=== PATIENT | male | born 1940 | race African-American/Black ===

== ENCOUNTER 2017-02-08 07:26 | Day surgery (SDC) | payer MEDICARE, OTHER ==
--- NOTE | 2017-02-07 11:02 | Pre-Procedure Note/Attestation ---
Pre-Procedure Note/Attestation Complete Prior to Procedure Planned Procedure: right Procedure Narrative: phaco with IOL, OD Indications for Procedure Pre-Operative Diagnosis: cataract Attestation I attest that I discussed the nature of the procedure; its benefits; risks and complications; and alternatives (and the risks and benefits of such alternatives ), prior to the procedure, with the patient (or the patient's legal home furnishings sales representative). I attest that, if there was a reasonable possibility of needing a blood transfusion, the patient (or the patient's legal home furnishings sales representative) was given the [facility] standardized written summary, pursuant to the Liam Petar Blood Safety Act ([place] Health and Safety Code # 1645, as amended). I attest that I re-evaluated the patient just prior to the surgery and that there has been no change in the patient's H&P, except as documented below: ЕКАТЕРИНА VAZQUEZ Feb 07, 2017 11:02
--- NOTE | 2017-02-07 11:04 | Opthalmology H&P ---
Ophthalmology H&P H&P Chief Complaint: decreased vision in right eye HPI Vision Affects Ability to: read, focus/use eyes together HPI Narrative blurry vision Exam Visual Acuity: OD: cf OS: cf Tension: OD: 20 OS: 23 Eye Exam: normal OU: anterior chambers, corneas, external exam, levator function, marginal reflex distance, palpebral fissure-width, findings: fundus exam - poor view OU, lens - OD: ns Assessment/Plan Diagnosis: (1) Cataract Treatment Plan: cataract extraction w/ lens implant Goals of Treatment: improvement of vision, enhance quality of life Attestation Attestation The risks and benefits of the surgery as well as alternative procedures were explained to the patient in detail. ЕКАТЕРИНА VAZQUEZ Feb 07, 2017 11:03
[~2017-02-08] VITALS: Ht 152.4 cm; Wt 49.0 kg
[2017-02-08] VITALS (10 sets, daily range): BP systolic 111–124; BP diastolic 37–82
[~2017-02-08 07:26] MED LIST: ATIVAN1 MG ORAL; AVODART0.5 MG ORAL; Akten 3.5% 1ml Btl RIGHT EYE ONE; FLOMAX0.4 MG ORAL; FOLIC ACID1 M1; FOLIC ACID1 MG ORAL; LATANOPROST2.5 ML BOTH EYES; METHOTREXATE2.5 MG PO; PLAQUENIL200 MG ORAL; PREDNISONE10 M2 PO; PREDNISONE20 M1 PO; PROCRIT3000 UNIT/ SUBQ; PROSCAR5 MG ORAL; TAMSULOSIN HCL0.4 MG ORAL; TRAMADOL HCL50 MG ORAL; Tobramycin Op Soln 0.3% RIGHT EYE ONE
[2017-02-08] MEDS: Cyclopentolate 1% Opth Sol RIGHT EYE SCH ×3 (07:55→08:14)
[2017-02-08] MEDS: Tropicamide 1% Opth Soln RIGHT EYE SCH ×3 (07:56→08:14)
[2017-02-08] MEDS: Phenylephrine 10% Opth Soln 5ml RIGHT EYE SCH ×3 (07:56→08:14)
[2017-02-08] MEDS: Diclofenac Sod 0.1% Op Soln RIGHT EYE SCH ×3 (07:56→08:15)
[2017-02-08] MEDS ORDERED: MELOXICAM7.5 MG/5 M ORAL (08:14)
[2017-02-08] MEDS ORDERED: PREDNISONE20 M1 PO (08:14)
[2017-02-08] MEDS ORDERED: Sterile Water Irrig 1000ml IRRIG ONE (09:30)
[2017-02-08] MEDS ORDERED: Midazolam 2mg/2ml Inj ONE (09:30)
[2017-02-08] MEDS ORDERED: Propofol 10mg/ml 20ml IV ONE (09:30)
[2017-02-08] MEDS ORDERED: NS Irrig 1000ml ONE (09:30)
--- NOTE | 2017-02-08 09:57 | Anethesia Preoperative Eval ---
Anesthesia Pre-op PMH/ROS General Date of Evaluation: Feb 08, 2017 Time of Evaluation: 09:21 Anesthesiologist: Jonas ASA Score: ASA 3 Mallampati Score Class I : Soft palate, uvula, fauces, pillars visible Class II: Soft palate, uvula, fauces visible Class III: Soft palate, base of uvula visible Class IV: Only hard plate visible Mallampati Classification: Class III Surgeon: Dianelys Diagnosis: Cataract right eye Surgical Procedure: Extraction of cataract with IOL right eye Anesthesia History: none Family History: no anesthesia problems Allergies: Coded Allergies: SULFAMETHOXAZOLE (Unverified Allergy, Mild, Rash, 08/01/14) reported by patient TRIMETHOPRIM (Unverified Allergy, Mild, Rash, 08/01/14) reported by patient Medications: see eMAR Past Medical History Cardiovascular: Reports: CAD, other - CHF Pulmonary: Denies: COPD, PINEDA, asthma, other Gastrointestinal/Genitourinary: Reports: CRI, other - BPH, Denies: ESRD, GERD Neurologic/Psychiatric: Denies: CVA, TIA, dementia, depression/anxiety, other Endocrine: Denies: DM, hypothyroidism, other, steroids HEENT: Reports: cataract (R) Hematology/Immune: Reports: anemia, Denies: DVT, bleeding disorder, other Musculoskeletal/Integumentary: Reports: RA, Denies: DDD, DJD, OA, edema, other PMH Narrative: RA, CHF, BPH, anemia, CRI, contractures PSxH Narrative: Denies Anesthesia Pre-op Phys. Exam Physician Exam Last Vital Signs Date Time Temp Pulse Resp B/P Pulse Ox O2 Delivery O2 Flow Rate FiO2 02/08/17 08:07 98.3 95 18 111/65 98 Room Air Constitutional: NAD, other - Contractures Neurologic: CN 2-12 intact Cardiovascular: RRR, no M/R/G Respiratory: CTA Gastrointestinal: S/NT/ND Airway Exam Mallampati Score: Class III MO: limited Teeth: intact Anesthesia Pre-op A/P Risk Assessment & Plan Assessment: RA, contractures, CRI, CHF Plan: MAC, TIVA Status Change Before Surgery: No Pre-Antibiotics Drug: None JUAN MURGUIA M.D. Feb 08, 2017 09:56
--- NOTE | 2017-02-08 09:58 | Immediate Post-Op Evaluation ---
Immediate Post-Op Evalulation Immediate Post-Op Evalulation Procedure: Extraction of cataract with IOL right eye Date of Evaluation: Feb 08, 2017 Time of Evaluation: 10:45 IV Fluids: 300 Blood Pressure Systolic: 113 Blood Pressure Diastolic: 74 Pulse Rate: 94 Respiratory Rate: 20 O2 Sat by Pulse Oximetry: 100 Temperature (Fahrenheit): 97.5 Pain Score (1-10): 0 Nausea: No Vomiting: No Complications No complication Patient Status: awake, patent, none Hydration Status: adequate Drug: None JUAN MURGUIA M.D. Feb 08, 2017 09:58
[2017-02-08] MEDS ORDERED: fentaNYL 100 mcg/2 mL IV PRN (10:00)
--- NOTE | 2017-02-08 10:43 | 48 Hour Post Anesthesia Eval ---
Post Anesthesia Evaluation Procedure: Extraction of cataract with IOL right eye Date of Evaluation: Feb 08, 2017 Time of Evaluation: 11:15 Blood Pressure Systolic: 115 0: 75 Pulse Rate: 82 Respiratory Rate: 15 O2 Sat by Pulse Oximetry: 100 Airway: patent Nausea: No Pain Intensity: 0 Hydration Status: adequate Cardiopulmonary Status: Stable Mental Status/LOC: patient returned to baseline Follow-up Care/Observations: As per surgery Post-Anesthesia Complications: No anesthetic complication Follow-up care needed: N/A JUAN MURGUIA M.D. Feb 08, 2017 10:43
[2017-02-08] MEDS ORDERED: Pilocarpine 2% Opth Soln ONE (12:35)
[2017-02-08] MEDS ORDERED: Lidocaine 4% Amp ONE (12:35)
[2017-02-08] MEDS ORDERED: Povidone-Iodine 5% opth solution ONE (12:35)
[2017-02-08] MEDS ORDERED: Sodium Hyaluronate 14 mg/ml 0.85ml ONE (12:35)
[2017-02-08] MEDS ORDERED: EPINEPHrine 1mg/1ml Amp ONE (12:35)
[2017-02-08] MEDS ORDERED: Carbachol 0.01% Op Soln 1.5ml vial ONE (12:35)
[2017-02-08] MEDS ORDERED: BSS 15ml BTL ONE (12:35)
--- NOTE | 2017-02-09 09:07 | Brief Operative Note ---
Immediate Post Operative Note Operative Note Chief Complaint: blurry vision Pre-op Diagnosis: cataract Procedure: phaco with IOL, OD Post-op Diagnosis: pseudophakia Post-op Diagnosis: same as pre-op Findings: consistent w/pre-op dx studies Surgeon: Dianelys Anesthesiologist: Jonas Anesthesia: MAC Specimen: none Complications: none Estimated Blood Loss: none Drains: none Implant(s) used?: Yes ЕКАТЕРИНА VAZQUEZ Feb 09, 2017 09:07
--- NOTE | 2017-02-09 09:19 | Operative Note - PDOC ---
Operative Note Operative Note Date of Operation/Procedure: Feb 08, 2017 Chief Complaint: blurry vision Pre-op Diagnosis: cataract Procedure: phaco with IOL, OD Post-op Diagnosis: pseudophakia Post-op Diagnosis: same as pre-op Operative Findings: consistent w/pre-op dx studies Surgeon: Dianelys Anesthesiologist: Jonas Anesthesia: MAC Specimen: none Complications: none Estimated Blood Loss: none Drains: none Implant(s) used?: Yes Indications for Procedure cataract Description of Procedure This patient has been complaining visually significant cataract in the affected eye with the best corrected visual acuity under moderate glare conditions worse. The patient complains of difficulties with glare in performing activities of daily living and wants to manage personal affairs with comfort and accuracy and see well enough to move with safety at home and outdoors. ~~~ The risks, benefits and alternatives of the procedure were discussed with the patient in the office prior to scheduling surgery. All questions from the patient were answered after the surgical procedure was explained in detail. The risks of the procedure as explained to the patient include, but are not limited to, pain, infection, bleeding, loss of vision, retinal detachment, need for further surgery, loss of lens nucleus, double vision, etc. Alternative procedures were discussed which include, to do nothing or seek a second opinion. Informed consent for this procedure was obtained from the patient. The patient was referred to a primary care physician for a cardiopulmonary clearance prior to surgery, after proper evaluation was done patient was properly scheduled for outpatient surgery. The patient was brought to the operating room where the anesthesiologist established I.V. lines and cardiac monitoring leads. Mild intravenous sedation was administered.~~ The patient was then prepared with a 5% solution of povidone -iodine to the conjunctival fornix and lashes, and a 10% solution of povidone- iodine to the lids and periorbital skin. The patient was then draped in the usual sterile fashion. A lid speculum was then placed in the operative eye. A keratome blade was then used to create a biplanar incision into the anterior chamber. Viscoelastics was then instilled into the anterior chamber. A capsulorrhexis was then fashioned with an utrata forceps followed by a BSS and a cannula were then used to hydrodissect and hydro delineate the lens. Paracentesis incision was made at 3 o'clock with sharp blade. The phacoemulsification unit, after being properly adjusted~ and tested, was then used to emulsify the nucleus then residual cortical material was aspirated with the irrigation and aspiration unit. Healon was then instilled into the anterior chamber. The corneal wound was then enlarged to the size of the optic with the tiara keratome blade. The intraocular lens was then inspected for right~ power and size~ and thought to be satisfactory. Then the lens was gently placed in the capsular bag. Positioning within the capsular bag was confirmed by direct visualization. Optic centration was accomplished with a Sinskey hook. Viscoelastics~ was removed from the anterior chamber using the irrigation and aspiration unit. The corneal wound was then tested for leaks and none were found. The lid speculum were then removed. Sponge and needle counts were correct. An eye patch and shield were placed over the operative eye. The patient was taken to the recovery room in stable condition. There were no complications. The patient tolerated the procedure well. The patient was then transferred to the ambulatory surgery unit in stable and satisfactory condition , was given detailed written instructions and asked to follow up~ in the office the next day. ~ ~ Dictated & Transcribed: [facility] Melissa DONNELLY JAMES Feb 09, 2017 09:19
== END 2017-02-08 11:30 | disposition home or self-care (01) ==
LOC: SUR 07:26
DX: H26.9 Unspecified cataract (principal); N18.3 Chronic kidney disease, stage 3 (moderate); N40.0 Benign prostatic hyperplasia without lower urinary tract symptoms; D63.1 Anemia in chronic kidney disease; M06.9 Rheumatoid arthritis, unspecified; I25.10 Atherosclerotic heart disease of native coronary artery without angina pectoris; I50.9 Heart failure, unspecified; R32 Unspecified urinary incontinence; Z88.3 Allergy status to other anti-infective agents; Z88.2 Allergy status to sulfonamides; Z79.52 Long term (current) use of systemic steroids; Z79.899 Other long term (current) drug therapy
CPT/HCPCS: 66984; J0171; J2250; J2704; V2632; 94003; 94150

== ENCOUNTER 2017-03-13 18:25 | Inpatient (IN) | payer MEDICARE, OTHER ==
[2017-03-13] VITALS (7 sets, daily range): BP systolic 58–122; BP diastolic 36–85
[~2017-03-13] VITALS: Ht 152.4 cm; Wt 39.9 kg
[~2017-03-13 18:25] MED LIST changes: -Akten 3.5% 1ml Btl RIGHT EYE ONE; +MELOXICAM7.5 MG/5 M ORAL; -Tobramycin Op Soln 0.3% RIGHT EYE ONE
[2017-03-13] MEDS ORDERED: Famotidine 20 MG/ 2ML VIAL IVP ONE (19:00)
[2017-03-13] MEDS ORDERED: Levophed 4mg/4mL Inj IV ONE ×2 (19:34→22:49)
[2017-03-13 20:29] LABS: MEAN CORPUSCULAR HEMOGLOBIN 32.4 PG (27.0-31.0); MEAN CORPUSCULAR HGB CONC 31.6 G/DL (32.0-36.0); MEAN CORPUSCULAR VOLUME 103 FL (80-99); MEAN PLATELET VOLUME 4.4 FL (6.5-10.1); PLATELET COUNT 244 K/UL (150-450); RED CELL DISTRIBUTION WIDTH 13.9 % (11.6-14.8); WHITE BLOOD COUNT 8.3 K/UL (4.8-10.8)
[2017-03-13 21:00] LABS: TROPONIN I < 0.30 ng/mL (<=0.30)
[2017-03-13 21:04] LABS: ALANINE AMINOTRANSFERASE 5 U/L (3-41); ALBUMIN/GLOBULIN RATIO 0.8 (1.0-2.7); ANION GAP 22 (5-15); ASPARTATE AMINO TRANSFERASE 10 U/L (5-40); CALCIUM 7.7 mg/dL (8.6-10.2); CARBON DIOXIDE 12 mEQ/L (20-30); CHLORIDE 108 mEQ/L (98-107); CREATININE 2.2 mg/dL (0.7-1.2); HEMOLYSIS 7; LIPASE 18 U/L (< 60); POTASSIUM 3.8 mEQ/L (3.4-4.9); SODIUM 142 mEQ/L (135-145); TOTAL PROTEIN 5.5 g/dL (6.6-8.7)
[2017-03-13 21:08] LABS: REFLEX LACTIC ACID YES OR NO YES
[2017-03-13 21:18] LABS: APPEARANCE,URINE CLEAR; KETONES,URINE NEGATIVE (NEGATIVE); LEUKOCYTE ESTERASE ,URINE 3+ (NEGATIVE); NITRITE,URINE NEGATIVE (NEGATIVE); PH,URINE 8 (4.5-8.0); PROTEIN,URINE 4+ (NEGATIVE); UROBILINOGEN,URINE NORMAL MG/DL (0.0-1.0)
[2017-03-13 21:19] LABS: RBC,URINE TNTC /HPF (0 - 0); WBC,URINE 20-30 /HPF (0 - 0)
[2017-03-13 21:20] LABS: SQUAMOUS EPITHELIAL CELL,UR MODERATE /LPF (NONE/OCC)
[2017-03-13 21:27] LABS: INR 1.1 (0.9-1.1)
[2017-03-13 21:29] LABS: BAND NEUTROPHILS % (MANUAL) 3 % (0-8); BASOPHILS % (MANUAL) 1 % (0-2); EOSINOPHILS % (MANUAL) 0 % (0-3); LYMPHOCYTES % (MANUAL) 41 % (20-45); NEUTROPHILS % (MANUAL) 54 % (45-75); PLATELET ESTIMATE ADEQUATE; TOTAL CELLS COUNTED 100
[2017-03-13 21:30] LABS: ANISOCYTOSIS 1+; MACROCYTES 2+; POLYCHROMASIA 1+
[2017-03-13 21:31] LABS: PLATELET MORPHOLOGY NORMAL
[2017-03-13 21:34] LABS: BACTERIA,URINE MODERATE /HPF
--- NOTE | 2017-03-13 23:31 | Emergency Room Report ---
History of Present Illness General Chief Complaint: Abdominal Pain Source: Patient, EMS Present Illness HPI Patient is a 76-year-old male who presented after increased abdominal pain. Patient had sudden onset of symptoms. He reported feeling generalized weakness. He had prior history of rheumatoid disease. He had not been vomiting. He was noted to have some bleeding from his penis. The patient reported having some hematuria. History is limited by patient's being a poor historian. Allergies: Coded Allergies: SULFAMETHOXAZOLE (Unverified Allergy, Mild, Rash, 08/01/14) reported by patient TRIMETHOPRIM (Unverified Allergy, Mild, Rash, 08/01/14) reported by patient Patient History Past Medical History: other - peptic ulcer disease, rheumatoid disease Reviewed Nursing Documentation: PMH: Agreed, PSxH: Agreed Nursing Documentation-PMH Past Medical History: No History, Except For Hx Cardiac Problems: No - anemia Hx Cancer: No Hx Gastrointestinal Problems: Yes - ulcer Hx Neurological Problems: No Hx Neurologic Surgery: Yes - 1997 Review of Systems All Other Systems: limited - by ams and acuity Physical Exam Vital Signs Date Time Temp Pulse Resp B/P Pulse Ox O2 Delivery O2 Flow Rate FiO2 03/13/17 18:28 98.4 87 18 109/87 99 Room Air 03/13/17 19:45 100 Sp02 EP Interpretation: reviewed, normal General Appearance: normal inspection, alert, GCS 15, moderate distress, cachetic Head: atraumatic Eyes: bilateral eye PERRL, bilateral eye conjunctivae pale ENT: normal ENT inspection, hearing grossly normal, normal voice Neck: normal inspection, supple, no bony tend Respiratory: normal inspection, no respiratory distress, no retraction, no wheezing Cardiovascular #1: regular rate, rhythm, no edema Gastrointestinal: non tender, soft, no guarding, no hernia, tenderness - suprapubic tenderness, mass - lower abdomen Genitourinary: no CVA tenderness Musculoskeletal: normal inspection, back normal, normal range of motion Neurologic: normal inspection, alert, oriented x3, responsive, speech normal Psychiatric: normal inspection, judgement/insight normal, mood/affect normal Skin: no rash, pallor Procedures Critical Care Time Critical Care Time Patient had a critical medical condition which untreated could potentially result in life or limb threatening injury. Total critical care time excluding procedures approximately 45 minutes. Medical Decision Making Diagnostic Impression: Primary Impression: Respiratory failure Additional Impressions: Severe anemia Gross hematuria Hypovolemic shock Lactic acidosis ER Course Patient presented for abdominal pain. Differential diagnoses included ischemic bowel, appendicitis, perforated viscus, abdominal aortic aneurysm, inferior myocardial infarction, viral gastroenteritis.Because of complexity of patient's case laboratory testing and imaging studies were ordered. The patient noted have a markedly the pallor with difficulty breathing. Patient was noted to have a blood near his urethral meatus. The patient was noted to be initially verbally responsive however he rapidly deteriorated. The patient was started on IV fluids. He was given IV crossmatch blood emergently do to a suspected anemia due to the marked hypotension. The patient was intubated emergently with a 7-0 ET tube. A right internal jugular central line was attempted under ultrasound guidance. This was unsuccessful and a right femoral central venous catheter was placed for pressor management emergently. The patient was transfused and uncrossmatch blood. The patient was discussed with Dr. Benjie Arellano for inpatient management. Labs Test 03/13/17 20:20 03/13/17 21:00 03/13/17 23:00 White Blood Count 8.3 K/UL (4.8-10.8) Red Blood Count 1.60 M/UL (4.70-6.10) Hemoglobin 5.2 G/DL (14.2-18.0) Hematocrit 16.4 % (42.0-52.0) Mean Corpuscular Volume 103 FL (80-99) Mean Corpuscular Hemoglobin 32.4 PG (27.0-31.0) Mean Corpuscular Hemoglobin Concent 31.6 G/DL (32.0-36.0) Red Cell Distribution Width 13.9 % (11.6-14.8) Platelet Count 244 K/UL (150-450) Mean Platelet Volume 4.4 FL (6.5-10.1) Neutrophils (%) (Auto) % (45.0-75.0) Lymphocytes (%) (Auto) % (20.0-45.0) Monocytes (%) (Auto) % (1.0-10.0) Eosinophils (%) (Auto) % (0.0-3.0) Basophils (%) (Auto) % (0.0-2.0) Differential Total Cells Counted 100 Neutrophils % (Manual) 54 % (45-75) Lymphocytes % (Manual) 41 % (20-45) Monocytes % (Manual) 1 % (1-10) Eosinophils % (Manual) 0 % (0-3) Basophils % (Manual) 1 % (0-2) Band Neutrophils 3 % (0-8) Platelet Estimate Adequate Platelet Morphology Normal Polychromasia 1+ Anisocytosis 1+ Macrocytosis 2+ Sodium Level 142 mEQ/L (135-145) Potassium Level 3.8 mEQ/L (3.4-4.9) Chloride Level 108 mEQ/L (98-107) Carbon Dioxide Level 12 mEQ/L (20-30) Anion Gap 22 (5-15) Blood Urea Nitrogen 38 mg/dL (7-23) Creatinine 2.2 mg/dL (0.7-1.2) Estimat Glomerular Filtration Rate mL/min (>60) Glucose Level 93 mg/dL (74-106) Calcium Level 7.7 mg/dL (8.6-10.2) Total Bilirubin 0.4 mg/dL (0.0-1.2) Aspartate Amino Transf (AST/SGOT) 10 U/L (5-40) Alanine Aminotransferase (ALT/SGPT) 5 U/L (3-41) Alkaline Phosphatase 58 U/L (40-129) Troponin I < 0.30 ng/mL (<=0.30) Total Protein 5.5 g/dL (6.6-8.7) Albumin 2.5 g/dL (3.5-5.2) Globulin 3.0 g/dL Albumin/Globulin Ratio 0.8 (1.0-2.7) Lipase 18 U/L (< 60) Prothrombin Time 12.0 SEC (9.30-11.50) Prothromb Time International Ratio 1.1 (0.9-1.1) Activated Partial Thromboplast Time 18 SEC (23-33) Urine Color Red Urine Appearance Clear Urine pH 8 (4.5-8.0) Urine Specific [place] 1.010 (1.005-1.035) Urine Protein 4+ (NEGATIVE) Urine Glucose (UA) Negative (NEGATIVE) Urine Ketones Negative (NEGATIVE) Urine Occult Blood 4+ (NEGATIVE) Urine Nitrite Negative (NEGATIVE) Urine Bilirubin Negative (NEGATIVE) Urine Urobilinogen Normal MG/DL (0.0-1.0) Urine Leukocyte Esterase 3+ (NEGATIVE) Urine RBC Tntc /HPF (0 - 0) Urine WBC 20-30 /HPF (0 - 0) Urine Squamous Epithelial Cells Moderate /LPF (NONE/OCC) Urine Bacteria Moderate /HPF (NONE) EKG Diagnostic Results Rate: normal Rhythm: NSR ST Segments: other - peaked t waves ASA given to the pt in ED: No Rhythm Strip Diag. Results EP Interpretation: yes Rhythm: NSR, no PVC's, no ectopy, other Chest X-Ray Diagnostic Results Chest X-Ray Diagnostic Results : Chest X-Ray Ordered: Yes # of Views/Limited/Complete: 1 View Indication: Chest Pain EP Interpretation: Yes Interpretation: no consolidation, no acute cardiopulmonary disease Impression: No acute disease Interpreting ER Provider: Electronically signed by Dr. Alex Mckeon M.D. Last Vital Signs Date Time Temp Pulse Resp B/P Pulse Ox O2 Delivery O2 Flow Rate FiO2 03/13/17 22:00 111 16 118/80 100 Mechanical Ventilator 100 03/13/17 21:30 90.2 Status: unchanged Disposition: ADMITTED INPATIENT Condition: Critical Referrals: LOGAN POWERS (PCP) Alex Mckeon Mar 13, 2017 23:31
[2017-03-14] VITALS (35 sets, daily range): BP systolic 0–155; BP diastolic 0–124
[2017-03-14] MEDS ORDERED: Hydrocortisone 100mg Inj IV ONE
[2017-03-14 01:19] LABS: ABG PCO2 41.1 mmHg (35.0-45.0)
[2017-03-14 01:20] LABS: ABG ALLEN TEST POSITIVE
[2017-03-14] MEDS ORDERED: Levophed 4mg/4mL Inj IV ONE ×3 (01:56→07:41)
[2017-03-14] MEDS ORDERED: Zosyn 3.375gm inj ONE (02:04)
[2017-03-14] MEDS: Piperacillin/Tazobactam 3.375 GM in D5W 110 ML IVPB SCH ×2 (02:15→13:58)
[2017-03-14] MEDS ORDERED: Sodium Bicarbonate 50ml Carp ONE (02:26)
[2017-03-14] MEDS ORDERED: Sodium Bicarbonate 100 ML in D5 1/2NS 1,000 ML IV SCH (03:00)
[2017-03-14 05:00] LABS: MEAN CORPUSCULAR HEMOGLOBIN 31.8 PG (27.0-31.0); MEAN CORPUSCULAR VOLUME 96 FL (80-99); PLATELET COUNT 158 K/UL (150-450); RED BLOOD COUNT 3.16 M/UL (4.70-6.10); RED CELL DISTRIBUTION WIDTH 14.3 % (11.6-14.8); WHITE BLOOD COUNT 12.3 K/UL (4.8-10.8)
[2017-03-14 05:36] LABS: ALANINE AMINOTRANSFERASE 5 U/L (3-41); ALBUMIN/GLOBULIN RATIO 0.7 (1.0-2.7); ANION GAP 19 (5-15); ASPARTATE AMINO TRANSFERASE 13 U/L (5-40); CARBON DIOXIDE 15 mEQ/L (20-30); CHLORIDE 101 mEQ/L (98-107); HEMOLYSIS 6; MAGNESIUM 1.7 mg/dL (1.7-2.5); POTASSIUM 4.2 mEQ/L (3.4-4.9); SODIUM 135 mEQ/L (135-145); TOTAL PROTEIN 4.9 g/dL (6.6-8.7)
[2017-03-14 06:21] LABS: TROPONIN I < 0.30 ng/mL (<=0.30)
[2017-03-14 07:13] LABS: REFLEX LACTIC ACID YES OR NO YES
[2017-03-14 07:32] LABS: BAND NEUTROPHILS % (MANUAL) 13 % (0-8); BASOPHILS % (MANUAL) 0 % (0-2); EOSINOPHILS % (MANUAL) 0 % (0-3); HYPOCHROMASIA 1+; LYMPHOCYTES % (MANUAL) 13 % (20-45); NEUTROPHILS % (MANUAL) 70 % (45-75); PLATELET ESTIMATE ADEQUATE; SPHEROCYTES 1+; TOTAL CELLS COUNTED 100
[2017-03-14 07:33] LABS: PLATELET MORPHOLOGY NORMAL
[2017-03-14] MEDS ORDERED: Pantoprazole Inj IVP SCH (09:00)
[2017-03-14 09:24] LABS: ABG BASE EXCESS -10.4; ABG PCO2 35.4 mmHg (35.0-45.0)
[2017-03-14 09:25] LABS: ABG ALLEN TEST POSITIVE
--- NOTE | 2017-03-14 11:27 | Diagnostic Imaging Report ---
Indication: Dyspnea Comparison: One hour earlier A single view chest radiograph was obtained. Findings: Endotracheal tube is in good position a few centimeters above the alex. No change otherwise. Impression: Endotracheal tube in good position
--- NOTE | 2017-03-14 11:36 | Diagnostic Imaging Report ---
Indication: Dyspnea Comparison: 07/31/14 A single view chest radiograph was obtained. Findings: Lungs are essentially clear. Heart is normal in size. Bones are osteopenic. There is a subperiosteal bone resorption at the coracoclavicular ligament attachment to the clavicle. Impression: No acute cardiopulmonary disease
--- NOTE | 2017-03-14 12:00 | Progress Note ---
DATE: 01/12/2017 CRITICAL CARE PROGRESS NOTE SUBJECTIVE: The patient's condition remains critical. Prognosis is guarded. He is in the intensive care unit. He is on pressor support and full ventilator support. He is more alert. His catheter is draining bloody urine. He has received 3 units of packed red blood cells. OBJECTIVE: VITAL SIGNS: A 70 to 100 systolic blood pressure, 90-120 heart rate, and respiratory 18 to 24. No fevers. HEENT: Temporal wasting. Orally intubated. Dry mucous membranes. NECK: Supple. LUNGS: With coarse breath sounds. No wheezing. CARDIAC: Regular rate. Normal S1 and S2 with a fourth heart sound. ABDOMEN: Soft. No distention. Mild suprapubic tenderness. No edema. LABORATORY AND DIAGNOSTIC DATA: ABG, pH 7.26, pCO2 35, and pO2 142. White count 12.3 and hemoglobin 10.1. Potassium 4.2, BUN 44, creatinine 2.0, and glucose 473. Albumin 2.1. IMPRESSION: 1. Sepsis. 2. Hypovolemia shock. 3. Severe anemia. 4. Acute on chronic renal failure. 5. History of multiple sclerosis. 6. Type 2 diabetes mellitus with uncontrolled blood glucose. 7. Lactic acidosis. 8. Severe protein-calorie malnutrition. 9. Respiratory failure. PLAN: Hydration, taper pressors, adjustments of acid-base parameters, broad-spectrum empiric antibiotics, nutrition by feeding tube once blood pressure is stabilized, insulin coverage by sliding scale. SCDs. Urologic evaluation to follow. Transfuse for hemoglobin less than 8 g. Benjie Arellano M.D. DR: SHIREEN JOB#: [id number] CC:
[2017-03-14] MEDS: NovoLOG Insulin Flexpen SUBQ SCH ×2 (12:54→16:16)
[2017-03-14] MEDS ORDERED: Sodium Bicarbonate 100 ML in 1/2 NS 1000ml 1,000 ML IV SCH (13:00)
--- NOTE | 2017-03-14 13:15 | History and Physical Report ---
DATE OF ADMISSION: 03/13/2017 REASON FOR ADMISSION: Respiratory failure and shock. HISTORY OF PRESENT ILLNESS: This is a 76-year-old male who presented to the emergency room with worsening abdominal pain. 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 He did not have an indwelling Berrios. However, on arrival to the emergency room that has noted bleeding from his penis. Upon arrival to the emergency room, his condition deteriorated with development of hypotension and respiratory distress requiring intubation and mechanical ventilation. PAST MEDICAL HISTORY: BPH, chronic kidney disease, urinary retention, neurogenic bladder, peripheral neuropathy, arteriosclerotic cardiovascular disease, multiple sclerosis, peptic ulcer disease with history of gastrointestinal bleed, anemia of chronic kidney disease, and anemia of chronic disease. ALLERGIES: Sulfa and trimethoprim. SOCIAL HISTORY: Negative for smoking, alcohol, or substance abuse. MEDICATIONS: Prior to admission, reviewed and reconciled. REVIEW OF SYSTEMS: Cannot be reliably obtained from the patient as he is orally intubated. Prior records from hospitalization are reviewed in detail and pertinent data outlined above. PHYSICAL EXAMINATION: GENERAL: Presently noncommunicative. Orally intubated and withdrawing only to pain. VITAL SIGNS: Blood pressure 70/50, heart rate 94, and respiratory rate 18. No fever. HEENT: Temporal wasting. Arcus senilis. Pale conjunctivae. Orally intubated. Dry mucous membranes. NECK: Supple. LUNGS: With bilateral breath sounds. No wheezing. CARDIAC: Regular rhythm and rate. Normal S1 and S2 with a fourth heart sound. ABDOMEN: Soft, slightly distended with tenderness in the suprapubic region. Suspected based on clinical exam, penis with a Berrios catheter was placed in the emergency room. EXTREMITIES: No edema. NEUROLOGIC: Nonfocal. LABORATORY DATA: White count 8.3, hemoglobin 5.2. Sodium 142, potassium 3.8, bicarb 12, BUN 38, and creatinine 2.2. Albumin is 2.5. INR 1.1. Urinalysis with 4+ occult blood, 3+ leukocyte esterase, too numerous to count red cells, 20 to 30 white cells. EKG sinus rhythm with no acute abnormality. Chest x-ray, no acute process. Lactic acid 8.8. Troponin negative. ABG, pH 7.17, pCO2 41, . IMPRESSION: 1. Shock. 2. Hypovolemia. 3. Sepsis. 4. Respiratory failure. 5. Severe metabolic acidosis. 6. Lactic acidosis. 7. Probable urinary tract infection. 8. Hematuria. 9. Urinary retention. 10. Neurogenic bladder. 11. Critical and guarded. 12. Severe anemia, multifactorial. PLAN: 1. Ventilator support, intravenous fluids with bicarb, pressors as needed. 2. Empiric antibiotics. 3. Berrios catheter. 4. Monitor acid-base status. 5. Transfuse to hemoglobin above 8 g. Benjie Arellano M.D. DR: DONNY JOB#: [id number] CC:
[2017-03-14 13:32] LABS: ABG PCO2 24.3 mmHg (35.0-45.0)
[2017-03-14 13:33] LABS: ABG ALLEN TEST POSITIVE; ABG BASE EXCESS -12.5
--- NOTE | 2017-03-14 13:33 | Consultation ---
Consult Note Consult Note REASON FOR ADMISSION: Respiratory failure HISTORY OF PRESENT ILLNESS: 76-year-old male who presented with abdominal pain and respiratory failure. 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 Upon arrival to the emergency room, his condition deteriorated with development of hypotension and respiratory distress and required intubation and mechanical ventilation. PAST MEDICAL HISTORY: BPH, chronic kidney disease, urinary retention, neurogenic bladder, peripheral neuropathy, arteriosclerotic cardiovascular disease, multiple sclerosis, peptic ulcer disease with history of gastrointestinal bleed, anemia of chronic kidney disease, and anemia of chronic disease. ALLERGIES: reviewed SOCIAL HISTORY: Negative for smoking, alcohol, retired MEDICATIONS: reviewed and reconciled. REVIEW OF SYSTEMS: unable PHYSICAL EXAMINATION: GENERAL: Presently noncommunicative. intubated VITAL SIGNS: 96/61 90 98.2 14 98% on the vent HEENT: Temporal wasting. Orally intubated. Dry mucous membranes. NECK: Supple. carotid 2+ LUNGS: With bilateral breath sounds. No wheezing. no rhonchi CARDIAC: Regular rhythm and rate. Normal S1 and S2 with a fourth heart sound. without MR ABDOMEN: Soft, slightly distended with tenderness in the suprapubic region. Suspected based on clinical exam, penis with a Berrios catheter was placed in the emergency room. EXTREMITIES: No edema. no CC NEUROLOGIC: Nonfocal. Laboratory Tests Test 03/13/17 20:20 03/13/17 21:00 03/13/17 23:00 03/14/17 01:10 White Blood Count 8.3 K/UL (4.8-10.8) Red Blood Count 1.60 M/UL (4.70-6.10) L Hemoglobin 5.2 G/DL (14.2-18.0) *L Hematocrit 16.4 % (42.0-52.0) L Mean Corpuscular Volume 103 FL (80-99) H Mean Corpuscular Hemoglobin 32.4 PG (27.0-31.0) H Mean Corpuscular Hemoglobin Concent 31.6 G/DL (32.0-36.0) L Red Cell Distribution Width 13.9 % (11.6-14.8) Platelet Count 244 K/UL (150-450) Mean Platelet Volume 4.4 FL (6.5-10.1) L Neutrophils (%) (Auto) % (45.0-75.0) Lymphocytes (%) (Auto) % (20.0-45.0) Monocytes (%) (Auto) % (1.0-10.0) Eosinophils (%) (Auto) % (0.0-3.0) Basophils (%) (Auto) % (0.0-2.0) Differential Total Cells Counted 100 Neutrophils % (Manual) 54 % (45-75) Lymphocytes % (Manual) 41 % (20-45) Monocytes % (Manual) 1 % (1-10) Eosinophils % (Manual) 0 % (0-3) Basophils % (Manual) 1 % (0-2) Band Neutrophils 3 % (0-8) Platelet Estimate Adequate Platelet Morphology Normal Polychromasia 1+ Anisocytosis 1+ Macrocytosis 2+ Sodium Level 142 mEQ/L (135-145) Potassium Level 3.8 mEQ/L (3.4-4.9) Chloride Level 108 mEQ/L (98-107) H Carbon Dioxide Level 12 mEQ/L (20-30) L Anion Gap 22 (5-15) H Blood Urea Nitrogen 38 mg/dL (7-23) H Creatinine 2.2 mg/dL (0.7-1.2) H Estimat Glomerular Filtration Rate mL/min (>60) Glucose Level 93 mg/dL (74-106) Lactic Acid Level 8.80 mmol/L (0.66-2.22) H 5.30 mmol/L (0.66-2.22) H Calcium Level 7.7 mg/dL (8.6-10.2) L Total Bilirubin 0.4 mg/dL (0.0-1.2) Aspartate Amino Transf (AST/SGOT) 10 U/L (5-40) Alanine Aminotransferase (ALT/SGPT) 5 U/L (3-41) Alkaline Phosphatase 58 U/L (40-129) Troponin I < 0.30 ng/mL (<=0.30) Total Protein 5.5 g/dL (6.6-8.7) L Albumin 2.5 g/dL (3.5-5.2) L Globulin 3.0 g/dL Albumin/Globulin Ratio 0.8 (1.0-2.7) L Lipase 18 U/L (< 60) Prothrombin Time 12.0 SEC (9.30-11.50) H Prothromb Time International Ratio 1.1 (0.9-1.1) Activated Partial Thromboplast Time 18 SEC (23-33) L Urine Color Red Urine Appearance Clear Urine pH 8 (4.5-8.0) Urine Specific Callahan 1.010 (1.005-1.035) Urine Protein 4+ (NEGATIVE) H Urine Glucose (UA) Negative (NEGATIVE) Urine Ketones Negative (NEGATIVE) Urine Occult Blood 4+ (NEGATIVE) H Urine Nitrite Negative (NEGATIVE) Urine Bilirubin Negative (NEGATIVE) Urine Urobilinogen Normal MG/DL (0.0-1.0) Urine Leukocyte Esterase 3+ (NEGATIVE) H Urine RBC Tntc /HPF (0 - 0) H Urine WBC 20-30 /HPF (0 - 0) H Urine Squamous Epithelial Cells Moderate /LPF (NONE/OCC) H Urine Bacteria Moderate /HPF (NONE) H Arterial Blood pH 7.173 (7.350-7.450) Arterial Blood Partial Pressure CO2 41.1 mmHg (35.0-45.0) Arterial Blood Partial Pressure O2 579.1 mmHg (75.0-100.0) H Arterial Blood HCO3 14.8 mmol/L (22.0-26.0) L Arterial Blood Oxygen Saturation 99.2 % (92.0-98.0) H Arterial Blood Base Excess -13.0 Dale Test Positive Test 03/14/17 04:00 03/14/17 06:30 03/14/17 07:00 03/14/17 11:45 White Blood Count 12.3 K/UL (4.8-10.8) H Red Blood Count 3.16 M/UL (4.70-6.10) L Hemoglobin 10.1 G/DL (14.2-18.0) #L Hematocrit 30.5 % (42.0-52.0) #L Mean Corpuscular Volume 96 FL (80-99) Mean Corpuscular Hemoglobin 31.8 PG (27.0-31.0) H Mean Corpuscular Hemoglobin Concent 33.0 G/DL (32.0-36.0) Red Cell Distribution Width 14.3 % (11.6-14.8) Platelet Count 158 K/UL (150-450) Mean Platelet Volume 5.0 FL (6.5-10.1) L Neutrophils (%) (Auto) % (45.0-75.0) Lymphocytes (%) (Auto) % (20.0-45.0) Monocytes (%) (Auto) % (1.0-10.0) Eosinophils (%) (Auto) % (0.0-3.0) Basophils (%) (Auto) % (0.0-2.0) Differential Total Cells Counted 100 Neutrophils % (Manual) 70 % (45-75) Lymphocytes % (Manual) 13 % (20-45) L Monocytes % (Manual) 4 % (1-10) Eosinophils % (Manual) 0 % (0-3) Basophils % (Manual) 0 % (0-2) Band Neutrophils 13 % (0-8) H Platelet Estimate Adequate Platelet Morphology Normal Hypochromasia 1+ Spherocytes 1+ Sodium Level 135 mEQ/L (135-145) Potassium Level 4.2 mEQ/L (3.4-4.9) Chloride Level 101 mEQ/L (98-107) Carbon Dioxide Level 15 mEQ/L (20-30) L Anion Gap 19 (5-15) H Blood Urea Nitrogen 44 mg/dL (7-23) H Creatinine 2.0 mg/dL (0.7-1.2) H Estimat Glomerular Filtration Rate mL/min (>60) Glucose Level 473 mg/dL (74-106) #H Calcium Level 7.0 mg/dL (8.6-10.2) L Magnesium Level 1.7 mg/dL (1.7-2.5) Total Bilirubin 0.6 mg/dL (0.0-1.2) Aspartate Amino Transf (AST/SGOT) 13 U/L (5-40) Alanine Aminotransferase (ALT/SGPT) 5 U/L (3-41) Alkaline Phosphatase 56 U/L (40-129) Troponin I < 0.30 ng/mL (<=0.30) Total Protein 4.9 g/dL (6.6-8.7) L Albumin 2.1 g/dL (3.5-5.2) L Globulin 2.8 g/dL Albumin/Globulin Ratio 0.7 (1.0-2.7) L Lactic Acid Level 4.90 mmol/L (0.66-2.22) H 4.00 mmol/L (0.66-2.22) H Arterial Blood pH 7.260 (7.350-7.450) Arterial Blood Partial Pressure CO2 35.4 mmHg (35.0-45.0) Arterial Blood Partial Pressure O2 142.8 mmHg (75.0-100.0) H Arterial Blood HCO3 15.6 mmol/L (22.0-26.0) L Arterial Blood Oxygen Saturation 97.8 % (92.0-98.0) Arterial Blood Base Excess -10.4 Dale Test Positive IMPRESSION: 1. Sepsis shock. 2. Hypotension 3. Acidemia 4. Respiratory failure. 5. Severe metabolic acidosis. 6. Lactic acidosis. 7. Urinary tract infection. 8. Hematuria. 9. Urinary retention. 10. Severe anemia, multifactorial. PLAN: 1. Ventilator support, hyperventilate; adjust tidal volume and RR 2. Empiric antibiotics and follow up cultures 3. Monitor I and out 4. Monitor acid-base status and keep ph >7.25 5. Transfuse as needed 6. ICU care reviewed and discussed 7. nutrition 8. patient critical medications/laboratory data/nursing notes/ICU care reviewed in detail note reviewed and edited care discussed with RN and RT ICU time spent 45 minutes TEX CONNELLY Mar 14, 2017 13:33
[2017-03-14] MEDS ORDERED: DOPamine 400mg/250ml 250 ML IV SCH (15:15)
--- NOTE | 2017-03-14 15:16 | Emergency Room Report ---
History of Present Illness General Chief Complaint: Abdominal Pain Source: Medical Record, Caregiver Present Illness Allergies: Coded Allergies: SULFAMETHOXAZOLE (Unverified Allergy, Mild, Rash, 08/01/14) reported by patient TRIMETHOPRIM (Unverified Allergy, Mild, Rash, 08/01/14) reported by patient Nursing Documentation-[facility] Past Medical History: No History, Except For Hx Cardiac Problems: Yes Hx Cancer: No Hx Gastrointestinal Problems: Yes Hx Neurological Problems: No Hx Neurologic Surgery: Yes - 1997 Physical Exam Vital Signs Date Time Temp Pulse Resp B/P Pulse Ox O2 Delivery O2 Flow Rate FiO2 03/13/17 18:28 98.4 87 18 109/87 99 Room Air 03/13/17 19:45 100 Procedures Critical Care Time Critical Care Time 40minutes See Code Blue documentation CPR/Code Blue CPR/Code Blue Narrative Code blue called at 1443 Was in process in ICU upon my arrival with 2X epi already given and CPR in progress RN states patient bradycardic down and then asystole VS: Hypotensive 70/30. HR 110. 100% o2 sat Noted massive gross hematuria seen in Berrios Patient maxed out on Levophed at 30mcg/min Last H&H 07/08 was earlier this AM after blood transfusion initiated in ED Patient had been intubated in ED After multiple rounds of epi and CPR, ROSC at 1451 Global cardiac contractility seen on my bedside cardiac echo Repeat BP still 70/30 Patient likely needs more blood Informed managing hospitalist Dr Arellano at 3pm He will order 2U PRBCs, CBC ECG I did shows sinus tachycardia to 109. No ischemia. Medical Decision Making Diagnostic Impression: Primary Impression: Respiratory failure Additional Impressions: Hypovolemic shock Severe anemia Gross hematuria Lactic acidosis Cardiac arrest EKG Diagnostic Results Rate: normal Rhythm: NSR ST Segments: no acute changes ASA given to the pt in ED: No Rhythm Strip Diag. Results EP Interpretation: yes Rate: 109 Rhythm: NSR, no PVC's, no ectopy Last Vital Signs Date Time Temp Pulse Resp B/P Pulse Ox O2 Delivery O2 Flow Rate FiO2 03/14/17 13:37 24 03/14/17 13:30 94 20 84/39 95 Mechanical Ventilator 03/14/17 12:00 98.1 Status: improved Disposition: ADMITTED INPATIENT Condition: Critical Referrals: LOGAN POWERS (PCP) MOHINDER PALAFOX M.D. Mar 14, 2017 15:16
[2017-03-14] MEDS ORDERED: NS 275ml ONE (16:31)
[2017-03-14] MEDS ORDERED: Tubing Blood Filter IV ONE (16:31)
--- NOTE | 2017-03-14 16:53 | Emergency Room Report ---
History of Present Illness General Chief Complaint: Abdominal Pain Source: Medical Record, Caregiver Present Illness Allergies: Coded Allergies: SULFAMETHOXAZOLE (Unverified Allergy, Mild, Rash, 08/01/14) reported by patient TRIMETHOPRIM (Unverified Allergy, Mild, Rash, 08/01/14) reported by patient Nursing Documentation-[facility] Past Medical History: No History, Except For Hx Cardiac Problems: Yes Hx Cancer: No Hx Gastrointestinal Problems: Yes Hx Neurological Problems: No Hx Neurologic Surgery: Yes - 1997 Physical Exam Vital Signs Date Time Temp Pulse Resp B/P Pulse Ox O2 Delivery O2 Flow Rate FiO2 03/13/17 18:28 98.4 87 18 109/87 99 Room Air 03/13/17 19:45 100 Procedures CPR/Code Blue CPR/Code Blue Narrative 1618 Calin blue called again Per RN, patient bradycardia down to asystole PRBC transfusion was in progress Patient on dopamine pressor as well now with marginal improvement in BP Continues with massive gross hematuria from webb We did 5 rounds of epi with CPR On serial pulse check, no palpable carotid pulse and no organized cardiac contractility on my bedside sono. At this point, it is a question of medical futility. Patient continues to have significant shock from internal bleeding with transfusion unable to keep pace. Time of called at 1632 Dr Arellano notified. Medical Decision Making Diagnostic Impression: Primary Impression: Respiratory failure Additional Impressions: Cardiac arrest Hypovolemic shock Severe anemia Gross hematuria Lactic acidosis Last Vital Signs Date Time Temp Pulse Resp B/P Pulse Ox O2 Delivery O2 Flow Rate FiO2 03/14/17 16:00 24 03/14/17 15:44 31/15 03/14/17 15:17 83 22 03/14/17 13:30 95 Mechanical Ventilator 03/14/17 12:00 98.1 Disposition: ADMITTED INPATIENT Condition: Critical Referrals: LOGAN POWERS (PCP) MOHINDER PALAFOX M.D. Mar 14, 2017 16:53
[2017-03-14] MEDS ORDERED: NS Irrig 1000ml ONE (17:17)
[2017-03-14] MEDS ORDERED: Tubing IV Secondary IV ONE (17:17)
[2017-03-14] MEDS ORDERED: D5W 275ml ONE (17:17)
[2017-03-14] MEDS ORDERED: D5 1/2NS 1000ml IV ONE (17:17)
[2017-03-15 10:06] LABS: OTHERS PATHOLOGIST COMMENT
--- NOTE | 2017-03-15 20:37 | Discharge Summary ---
Discharge Summary Hospital Course Date of Admission Mar 13, 2017 at 20:35 Date of Discharge Mar 14, 2017 at 16:32 Admitting Diagnosis RESPIRATORY FAILURE HPI Mark Najera is a 76 year old male who was admitted on Mar 13, 2017 at 20: 35 for Respiratory Failure Hospital Course [id number] Discharge Discharge Disposition Patient Discharge Diagnoses: Jessica Dumont NP Mar 15, 2017 20:37
--- NOTE | 2017-03-16 04:45 | Discharge Summary 2 SIG ---
DATE OF ADMISSION: 03/13/2017 DATE OF DISCHARGE: 03/14/2017 WORM SORTER: Manish Lazo M.D. BRIEF SUMMARY: The patient is a 76-year-old, male, who presented to emergency room with worsening abdominal pain. 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 He did not have an indwelling Berrios. On arrival to the emergency room, he was noted to have bleeding on the penis and his condition deteriorated with development of hypotension and respiratory distress requiring emergent intubation and mechanical ventilation. Chest x-ray showed no consolidation. No acute cardiopulmonary disease. EKG was in normal sinus rhythm with peaked T-waves. Urine RBC too many to count and urine WBC 20 to 30 with 3+ leukocyte esterase. Creatinine was 2.2. Lactic acid was 8.8. He was admitted to ICU for shock, hypovolemia, sepsis, respiratory failure, severe metabolic acidosis, lactic acidosis and probable urinary tract infection. He was given ventilatory support and was started on IV fluids with bicarb and was started on Zosyn. He was started on IV pressors. Initial hemoglobin was 5.2 and hematocrit of 16. He received a total of 4 units packed RBC. On 03/14/2017, following day, the patient went into code blue twice. Resuscitative efforts failed and the patient . FINAL DIAGNOSES: 1. Cardiac arrest. 2. Acute respiratory failure. 3. Hypovolemic shock. 4. Severe anemia. 5. Acute anemia requiring transfusion. 6. Gross hematuria. 7. Lactic acidosis. 8. Probable urinary tract infection. 9. Urinary retention. 10. Neurogenic bladder. Benjie Arellano M.D. I have been assigned to dictate discharge summary on this account and I was not involved in the patient's management. Jessica Dumont N.P. DR: WADE JOB#: [id number] CC:
--- NOTE | 2017-03-17 17:57 | Cardiology Report ---
APPROVED REPORT EKG Measurement Heart [id number] Sinus tachycardia Left axis deviation Nonspecific T wave abnormality Abnormal ECG
== END 2017-03-14 16:32 | disposition expired | DRG 208 ==
LOC: EDBD 18:25 → EDUNIT# 18:25 → EMR 18:44 → ICU 20:35 → EDBEDREQ 20:56
DX: J96.00 Acute respiratory failure, unspecified whether with hypoxia or hypercapnia (principal); E43 Unspecified severe protein-calorie malnutrition; A41.9 Sepsis, unspecified organism; N17.9 Acute kidney failure, unspecified; E87.2 Acidosis; I95.9 Hypotension, unspecified; R57.1 Hypovolemic shock; R65.21 Severe sepsis with septic shock; N39.0 Urinary tract infection, site not specified; Z68.1 Body mass index [BMI] 19.9 or less, adult; E11.65 Type 2 diabetes mellitus with hyperglycemia; R00.1 Bradycardia, unspecified; D64.9 Anemia, unspecified; N18.9 Chronic kidney disease, unspecified; G35 Multiple sclerosis; N40.1 Benign prostatic hyperplasia with lower urinary tract symptoms; R33.8 Other retention of urine; N31.9 Neuromuscular dysfunction of bladder, unspecified; R31.0 Gross hematuria
CPT/HCPCS: 31500; 36415; 36600; 71010; 80053; 81003; 82803; 82962; 83605; 83690; 83735; 84484; 85007; 85025; 85610; 85730; 86850; 86900; 86901; 86920; 87040; 87081; 87086; 87181; 92950; 93005; 94002; 94003; J1815; J2405